=== PATIENT | female | born 1970 ===

== ENCOUNTER 2021-11-04 18:31 | Emergency (ER) | payer SELFPAY ==
[2021-11-04 18:50] VITALS: BP 152/79
[2021-11-04 23:17] LABS: Basophils # (Auto) 0.2 K/mm3 (0.0-0.1); Eosinophils # (Auto) 0.6 K/mm3 (0.0-0.4); Eosinophils % (Auto) 3.2 % (0.0-4.3); Hematocrit 43.1 % (30.3-42.9); Hemoglobin 14.1 gm/dl (10.1-14.3); Lymphocytes # (Auto) 3.9 K/mm3 (1.2-5.4); Lymphocytes % (Auto) 21.8 % (13.4-35.0); Mean Corpuscular HGB Conc 33 % (30-34); Mean Corpuscular Volume 91 fl (79-97); Monocytes # (Auto) 1.6 K/mm3 (0.0-0.8); Monocytes % (Auto) 8.7 % (0.0-7.3); Platelet Count 282 K/mm3 (140-440); Red Blood Count 4.76 M/mm3 (3.65-5.03); Red Cell Distribution Width 16.3 % (13.2-15.2)
[2021-11-04 23:38] LABS: Mucus,Urine 2+ /HPF
[2021-11-04 23:38] LABS: Alanine Aminotransferase 22 units/L (7-56); Albumin 4.2 g/dL (3.9-5); Blood Urea Nitrogen 19 mg/dL (7-17); Calcium 8.8 mg/dL (8.4-10.2); Hemolysis Index 24
[2021-11-04 23:39] LABS: HCG Qualitative,Urine Negative (Negative)
[2021-11-04 23:55] LABS: Bilirubin,Urine Negative (Negative); Blood,Urine Negative (Negative); Color,Urine Yellow (Yellow)
[2021-11-04 23:56] LABS: Protein,Urine <15 mg/dL mg/dL (Negative); Urobilinogen,Urine < 2.0 mg/dL (<2.0)
[2021-11-05 00:03] LABS: BUN/Creatinine Ratio 32
[2021-11-05] MEDS ORDERED: SODIUM CHLORIDE 0.9% 1000 ML 1,000 ML IV ONE (00:38)
[2021-11-05] MEDS ORDERED: cefTRIAXone/NS 1 GM/50 ML 1 GM/50 ML BAG IV ONE (00:38)
--- NOTE | 2021-11-05 00:39 | XRay Report ---
CHEST 2 VIEWS INDICATION / CLINICAL INFORMATION: Weakness. COMPARISON: None available. FINDINGS: SUPPORT DEVICES: None. HEART / MEDIASTINUM: The heart size and pulmonary vasculature are normal. LUNGS / PLEURA: No significant pulmonary or pleural abnormality. No pneumothorax. ADDITIONAL FINDINGS: No significant additional findings. IMPRESSION: No acute findings. Signer Name: Mark Chew MD Signed: 11/05/2021 12:35 AM Workstation Name: [id number]
--- NOTE | 2021-11-05 02:17 | Emergency Department Report ---
ED Abdominal Pain HPI - General Chief Complaint: Abdominal Pain Stated Complaint: HEART TESTING Source: patient Mode of arrival: Ambulatory Limitations: No Limitations - History of Present Illness Initial Comments: Patient 51-year-old female who presents for rash generalized with bilateral lower extremity erythema and abdominal pain /. Patient denies history of renal stones or gallstones or other diagnoses. Been no fevers or chills, primary complaint is generalized rash with erythema to the bilateral lower extremities upper extremities and trunk. Patient states seen by PCP advised to present to ED to rule out sepsis. Patient is tolerating p.o. intake without assistance at this time. MD Complaint: flank pain - Related Data Previous Rx's Medication Instructions Recorded Last Taken Type Triamcinolone Aceton 0.1% (Nf) 1 applic TP BID #1 tube 11/05/21 Unknown Rx [Kenalog (NF)] cephALEXin [Keflex] 500 mg PO Q8HR 7 Days #21 cap 11/05/21 Unknown Rx diphenhydrAMINE [Benadryl CAP] 25 mg PO Q8HR PRN #30 capsule 11/05/21 Unknown Rx predniSONE [Deltasone] 40 mg PO QDAY 5 Days #10 tab 11/05/21 Unknown Rx Allergies Allergy/AdvReac Type Severity Reaction Status Date / Time No Known Allergies Allergy Verified 11/04/21 18:46 ED Review of Systems ROS: Stated complaint: HEART TESTING Other details as noted in HPI Constitutional: denies: chills, fever Eyes: denies: eye pain, eye discharge, vision change ENT: denies: ear pain, throat pain Respiratory: denies: cough, shortness of breath, wheezing Cardiovascular: denies: chest pain, palpitations Endocrine: no symptoms reported Gastrointestinal: as per HPI Genitourinary: denies: urgency, dysuria, discharge Musculoskeletal: denies: back pain, joint swelling, arthralgia Skin: rash (Eyes erythema warm to touch no weeping no open wound no lesions.). denies: lesions Neurological: denies: headache, weakness, paresthesias, vertigo Psychiatric: denies: anxiety, depression Hematological/Lymphatic: denies: easy bleeding, easy bruising ED Past Medical Hx - Medications Home Medications: Home Medications Medication Instructions Recorded Confirmed Last Taken Type Triamcinolone Aceton 0.1% (Nf) 1 applic TP BID #1 tube 11/05/21 Unknown Rx [Kenalog (NF)] cephALEXin [Keflex] 500 mg PO Q8HR 7 Days #21 cap 11/05/21 Unknown Rx diphenhydrAMINE [Benadryl CAP] 25 mg PO Q8HR PRN #30 capsule 11/05/21 Unknown Rx predniSONE [Deltasone] 40 mg PO QDAY 5 Days #10 tab 11/05/21 Unknown Rx ED Physical Exam - General Limitations: No Limitations General appearance: alert, in no apparent distress - Head Head exam: Present: normocephalic - Eye Eye exam: Present: normal appearance, PERRL, EOMI Pupils: Present: normal accommodation - ENT ENT exam: Present: normal orophraynx, mucous membranes moist - Neck Neck exam: Present: normal inspection, full ROM. Absent: tenderness, ly mphadenopathy - Respiratory Respiratory exam: Present: normal lung sounds bilaterally. Absent: respiratory distress, wheezes, stridor, chest wall tenderness - Cardiovascular Cardiovascular Exam: Present: regular rate, normal rhythm, normal heart sounds. Absent: systolic murmur, diastolic murmur, rubs, gallop - GI/Abdominal GI/Abdominal exam: Present: distended, normal bowel sounds. Absent: tenderness, guarding, rebound, rigid, bruit, hernia - Rectal Rectal exam: Present: deferred - Speculum exam: Present: normal speculum exam - Extremities Exam Extremities exam: Present: full ROM, normal capillary refill. Absent: pedal edema, joint swelling, calf tenderness - Back Exam Back exam: Present: normal inspection, full ROM. Absent: tenderness, CVA tenderness (R), CVA tenderness (L) - Neurological Exam Neurological exam: Present: alert, oriented X3, CN II-XII intact, normal gait, reflexes normal. Absent: motor sensory deficit - Psychiatric Psychiatric exam: Present: normal affect, normal mood. Absent: depressed - Skin Skin exam: Present: warm, dry, erythema (Bilateral lower extremities trunk and bilateral arms). Absent: intact ED Course Vital Signs 11/04/21 18:46 Temperature 98.8 F Pulse Rate 78 Respiratory 16 Rate Blood Pressure 152/79 [Left] O2 Sat by Pulse 100 Oximetry ED Medical Decision Making - Lab Data Result diagrams: 11/04/21 23:06 11/04/21 23:06 Labs 11/04/21 11/04/21 11/04/21 23:06 23:06 23:06 WBC 18.1 H RBC 4.76 Hgb 14.1 Hct 43.1 H MCV 91 MCH 30 MCHC 33 RDW 16.3 H Plt Count 282 Lymph % (Auto) 21.8 [place] % (Auto) 8.7 H Eos % (Auto) 3.2 Baso % (Auto) 1.0 Lymph # (Auto) 3.9 [place] # (Auto) 1.6 H Eos # (Auto) 0.6 H Baso # (Auto) 0.2 H Seg Neutrophils % 65.3 Seg Neutrophils # 11.8 H Sodium 141 Potassium 4.1 Chloride 104.4 Carbon Dioxide 26 Anion Gap 15 BUN 19 H Creatinine 0.6 Estimated GFR > 60 BUN/Creatinine Ratio 32 Glucose 128 H Lactic Acid Calcium 8.8 Total Bilirubin 0.20 AST 16 ALT 22 Alkaline Phosphatase 83 Troponin T < 0.010 Total Protein 6.9 Albumin 4.2 Albumin/Globulin Ratio 1.6 Lipase 35 Urine Color Urine Turbidity Urine pH Ur Specific Nixon Urine Protein Urine Glucose (UA) Urine Ketones Urine Blood Urine Nitrite Ur Reducing Substances Urine Bilirubin Urine Ictotest Urine Urobilinogen Ur Leukocyte Esterase Urine WBC (Auto) Urine RBC (Auto) Urine Mucus Urine HCG, Qual 11/04/21 11/05/21 23:26 00:20 WBC RBC Hgb Hct MCV MCH MCHC RDW Plt Count Lymph % (Auto) [place] % (Auto) Eos % (Auto) Baso % (Auto) Lymph # (Auto) [place] # (Auto) Eos # (Auto) Baso # (Auto) Seg Neutrophils % Seg Neutrophils # Sodium Potassium Chloride Carbon Dioxide Anion Gap BUN Creatinine Estimated GFR BUN/Creatinine Ratio Glucose Lactic Acid 0.70 Calcium Total Bilirubin AST ALT Alkaline Phosphatase Troponin T Total Protein Albumin Albumin/Globulin Ratio Lipase Urine Color Yellow Urine Turbidity Clear Urine pH 5.0 Ur Specific Nixon 1.035 H Urine Protein <15 mg/dl Urine Glucose (UA) Negative Urine Ketones Negative Urine Blood Negative Urine Nitrite Negative Ur Reducing Substances Not Reportable Urine Bilirubin Negative Urine Ictotest Not Reportable Urine Urobilinogen < 2.0 Ur Leukocyte Esterase Negative Urine WBC (Auto) 1.0 Urine RBC (Auto) 2.0 Urine Mucus 2+ Urine HCG, Qual Negative - EKG Data EKG shows normal: sinus rhythm, axis, intervals, QRS complexes, ST-T waves Rate: normal - EKG Data When compared to previous EKG there are: previous EKG unavailable Interpretation: normal EKG (NSR No STEMI interp by ed attending ) - Radiology Data Radiology results: report reviewed, image reviewed Ordering Physician: MARTIN RENEE NP Date of Service: 11/04/21 Procedure(s): XR chest routine 2V Accession Number(s): [id number] cc: MARTIN RENEE NP Fluoro Time In Minutes: CHEST 2 VIEWS INDICATION / CLINICAL INFORMATION: Weakness. COMPARISON: 09/13/21. FINDINGS: SUPPORT DEVICES: None. HEART / MEDIASTINUM: The heart size and pulmonary vasculature are normal. LUNGS / PLEURA: No significant pulmonary or pleural abnormality. No pneumothorax. ADDITIONAL FINDINGS: No significant additional findings. IMPRESSION: No acute findings. Signer Name: Mark Chew MD Signed: 11/04/2021 11:25 PM Workstation Name: [id number] Transcribed By: RT Dictated By: Mark Chew MD Electronically Authenticated By: Mark Chew MD Signed Date/Time: 11/04/212324 DD/ 23 TD/TT: - Medical Decision Making Patient advises symptoms are improved itching is relieved, chest x-ray normal no infiltrates no opacities. EKG normal sinus rhythm no ST elevated OH interpreted by ED attending. Troponin is negative. CMP normal UA normal white count is 18 patient has been on p.o. steroids for contact dermatitis. Plan DC to home, continue treatment for cellulitis, follow-up with primary care doctor tomorrow, return to emergency department should symptoms worsen. Patient verbalized agreement understanding discharge plan. Patient DC'd home in stable condition at this time. Critical care attestation.: If time is entered above; I have spent that time in minutes in the direct care of this critically ill patient, excluding procedure time. ED Disposition Clinical Impression: Cellulitis Qualifiers: Site of cellulitis: unspecified site Qualified Code(s): L03.90 - Cellulitis, unspecified Contact dermatitis Qualifiers: Contact dermatitis type: unspecified Contact dermatitis trigger: unspecified trigger Qualified Code(s): L25.9 - Unspecified contact dermatitis, unspecified cause Disposition: HOME / SELF CARE / HOMELESS Is pt being admited?: No Does the pt Need Aspirin: No Condition: Stable Instructions: Abdominal Pain (ED), Cellulitis, Adult Additional Instructions: Take medications as prescribed, follow-up with your doctor in 1 to 2 days. Return to emergency department should symptoms worsen. Prescriptions: diphenhydrAMINE [Benadryl CAP] 25 mg PO Q8HR PRN #30 capsule PRN Reason: itching predniSONE [Deltasone] 40 mg PO QDAY 5 Days #10 tab cephALEXin [Keflex] 500 mg PO Q8HR 7 Days #21 cap Triamcinolone Aceton 0.1% (Nf) [Kenalog (NF)] 1 applic TP BID #1 tube Referrals: GABE GILES [Other] - 3-5 Days Forms: Work/School Release Form(ED) Time of Disposition: 02:43
--- NOTE | 2021-11-05 10:57 | Electrocardiograph Report ---
[facility] Test Date: 2021-11-05 Test Time: 00:03:12 Pat Name: MARIA M HOLCOMB Department: Room: Gender: F Mobile [employer] Specialist: [id number] : 1970 Requested By: MARTIN RENEE Order Number: [id number] Reading MD: Evens Siegel Measurements Intervals [place] Rate: 65 P: 62 MI: 157 QRS: 50 QRSD: 101 T: 42 QT: 412 QTc: 430 Interpretive Statements Sinus rhythm Probable left atrial enlargement Low voltage, precordial leads No previous ECG available for comparison Electronically Signed On 11-05-2021 10:56:52 EDT by Evens Siegel
== END 2021-11-05 03:00 | disposition home or self-care (01) ==
LOC: ED 18:31
DX: L03.90 Cellulitis, unspecified (principal); L25.9 Unspecified contact dermatitis, unspecified cause
CPT/HCPCS: 36415; 71046; 80053; 81001; 81025; 82140; 83690; 84484; 85025; 93005; 96365; 99284; J0696; J7030; Q0162